=== PATIENT | male | born 1985 | race Caucasian/White ===

== ENCOUNTER 2019-12-23 02:50 | Emergency (ER) | payer OTHER ==
[~2019-12-23] VITALS: Ht 170.2 cm; Wt 98.0 kg
[2019-12-23 02:57] VITALS: BP 143/103
--- NOTE | 2019-12-23 03:02 | NUR ---
PT AMBULATED TO BED #11
--- NOTE | 2019-12-23 03:09 | NUR ---
34 Y/O MALE C/O ABSCESS TO HEAD AND RT/LT AXILLA X6DAYS. WITH C/O NAUSEA. DENIES V/D. LARGE ABSCESS AND REDNESS NOTED TO RT AXILLA. ACTIVE BS. LUNGS CLA. CAP REFILL <3 SECONDS. MEDHX- DM, HTN, PSORISAS, PANCREATITIS NKA
--- NOTE | 2019-12-23 03:19 | NUR ---
ERMD AT BEDSIDE EXAMINING PT.
[2019-12-23] MEDS ORDERED: LIDOCAINE 2% 1000 MG/50 ML VIAL INJ ONE (03:25)
[2019-12-23 03:58] VITALS: BP 143/103
--- NOTE | 2019-12-23 03:58 | NUR ---
Patient discharged with v/s stable. Written and verbal after care instructions given and explained. Patient alert, oriented and verbalized understanding of instructions. Ambulatory with steady gait. All questions addressed prior to discharge. ID band removed. Patient advised to follow up with PMD. Rx of KEFLEX, MOTRIN, BACTRIM given. Patient educated on indication of medication including possible reaction and side effects. Opportunity to ask questions provided and answered.
== END 2019-12-23 03:58 | disposition home or self-care (01) ==
LOC: MED 02:50
DX: L02.411 Cutaneous abscess of right axilla (principal); E11.9 Type 2 diabetes mellitus without complications; I10 Essential (primary) hypertension
CPT/HCPCS: 10060; 99283; J2001

== ENCOUNTER 2019-12-25 02:56 | Emergency (ER) | payer OTHER ==
[~2019-12-25] VITALS: Ht 170.2 cm; Wt 97.5 kg
[2019-12-25 03:01] VITALS: BP 159/93
[2019-12-25 03:27] VITALS: BP 159/93
== END 2019-12-25 03:27 | disposition home or self-care (01) ==
LOC: MED 02:56
DX: L02.411 Cutaneous abscess of right axilla (principal); E11.9 Type 2 diabetes mellitus without complications; I10 Essential (primary) hypertension
CPT/HCPCS: 99281

== ENCOUNTER 2020-02-28 23:47 | Emergency (ER) | payer OTHER ==
[~2020-02-28] VITALS: Ht 170.2 cm; Wt 99.8 kg
[2020-02-28 23:54] VITALS: BP 144/77
--- NOTE | 2020-02-28 23:57 | NUR ---
ambulated to bed 10 with steady gait.
[2020-02-29] MEDS ORDERED: ACETAMINOPHEN EXTRA STRENGTH 500 MG TAB PO ONE
--- NOTE | 2020-02-29 00:09 | NUR ---
34 Y/O MALE PRESENTED TO ED C/O 3 ABCESSES ( BEHIND RIGHT EAR , UNDER LEFT CHIN AND SCROTUM AREA) . OBSERVED REDNESS AND SWELLING BEHIND RIGHT EAR. PT STATES THE RT EAR AND SCROTUM POPPED TODAY. PT RATES PAIN 9/10 , THROBBING X 1 WEEK. PT RESTING IN BED, LOCKED AND IN LOWEST POSITION, HOB ELEVATED, SIDE RAIL X1. VSS, NO ACUTE DISTRESS NOTED AT THIS TIME. PMH: DM, HTN , PANCREATITIS , NKA
--- NOTE | 2020-02-29 00:10 | NUR ---
CORA WING AT BEDSIDE FOR MEDICAL EVALUATION.
[2020-02-29] MEDS ORDERED: MORPHINE SULFATE 4 MG/ML SYR IVP ONE (00:20)
[2020-02-29] MEDS ORDERED: PIPERACILLIN/TAZOBACTAM 4.5 GM in DEXTROSE 5% 100 ML IV ONE (00:20)
[2020-02-29] MEDS ORDERED: ONDANSETRON 4 MG/2 ML VIAL IVP ONE (00:20)
[2020-02-29] MEDS ORDERED: VANCOMYCIN 1,000 MG in DEXTROSE 5% 250 ML IV ONE (00:20)
[2020-02-29] MEDS ORDERED: PIPERACILLIN/TAZOBACTAM 4.5 GM VIAL IV ONE (00:22)
[2020-02-29] MEDS ORDERED: VANCOMYCIN 1,000 MG VIAL ONE (00:22)
--- NOTE | 2020-02-29 00:30 | NUR ---
LAB AT BEDSIDE.
--- NOTE | 2020-02-29 00:35 | NUR ---
IV 22 G INSERTED INTO RIGHT HAND , FLUSHED W/ 10 CC NS . IV PATENT , NO REDNESS OR SWELLING NOTED AT IV INSERTION SITE.
[2020-02-29 00:50] LABS: BASOPHILS % (AUTO) 0.3 % (0.0-2.0); EOSINOPHILS # (AUTO) 0.1 K/uL (0-0.4); EOSINOPHILS % (AUTO) 0.4 % (0.0-4.0); HEMATOCRIT 37.7 % (36-52); HEMOGLOBIN 12.9 g/dL (12.0-18.0); LYMPHOCYTES # (AUTO) 1.2 K/uL (2.0-11.5); LYMPHOCYTES % (AUTO) 8.4 % (20.5-51.1); MEAN CORPUSCULAR HEMOGLOBIN 29 pg (27-31); MEAN CORPUSCULAR HGB CONC 34 g/dL (33-37); MEAN CORPUSCULAR VOLUME 83.6 fL (80-94); MONOCYTES # (AUTO) 1.1 K/uL (0.8-1.0); MONOCYTES % (AUTO) 7.6 % (1.7-9.3); NEUTROPHILS # (AUTO) 12.2 K/uL (1.8-7.7); PLATELET COUNT (AUTO) 319 K/uL (140-450); RED BLOOD CELL COUNT(AUTO) 4.51 MIL/uL (4.20-6.10); RED CELL DISTRIBUTION WIDTH 14.6 % (11.6-13.7); WHITE BLOOD COUNT (AUTO) 14.6 K/uL (4.8-10.8)
[2020-02-29 01:05] LABS: ALBUMIN 3.6 g/dL (3.4-5.0); ANION GAP 16.5 (8-16); CREATININE 1.6 mg/dL (0.6-1.3); POTASSIUM 3.5 mmol/L (3.5-5.1); TOTAL BILIRUBIN 0.4 mg/dL (0.0-1.0)
[2020-02-29 01:15] LABS: NEUTROPHILS % (AUTO) 83.3 % (42.2-75.2)
[2020-02-29] MEDS ORDERED: NACL 0.9% 1,000 ML IV ONE (01:20)
[2020-02-29] MEDS ORDERED: HYDROmorphone PFS 2 MG/ML SYR IVP ONE (01:20)
--- NOTE | 2020-02-29 01:25 | NUR ---
PT C/O OF 02/12 PAIN , CORA WING MADE AWARE.
--- NOTE | 2020-02-29 02:42 | NUR ---
PT RESTING IN BED, LOCKED AND IN LOWEST POSITION, HOB ELEVATED, SIDE RAIL X1 . VSS , SA02 97% . NO ACUTE DISTRESS NOTED AT THIS TIME.
--- NOTE | 2020-02-29 03:55 | NUR ---
IV removed, catheter intact and site benign. Applied folded 4x4 gauze and tape to stop bleeding.
[2020-02-29 03:59] VITALS: BP 114/78
--- NOTE | 2020-02-29 03:59 | NUR ---
Patient discharged with v/s stable. Written and verbal after care instructions given and explained. Patient alert, oriented and verbalized understanding of instructions. Ambulatory with steady gait. All questions addressed prior to discharge. ID band removed. Patient advised to follow up with PMD. Rx of NORCO , KEFLEX, ZOFRAN AND BACTRIM given. Patient educated on indication of medication including possible reaction and side effects. Opportunity to ask questions provided and answered.
== END 2020-02-29 03:59 | disposition home or self-care (01) ==
LOC: MED 23:47
DX: L03.221 Cellulitis of neck (principal); L02.11 Cutaneous abscess of neck; E11.9 Type 2 diabetes mellitus without complications; I10 Essential (primary) hypertension
CPT/HCPCS: 36415; 80053; 83605; 85025; 87040; 96365; 96367; 96375; 99284; J1170; J2270; J2405; J2543; J3370

== ENCOUNTER 2020-12-04 23:52 | Emergency (ER) | payer BC, OTHER ==
[~2020-12-04] VITALS: Ht 170.2 cm; Wt 97.5 kg
[2020-12-04 23:53] VITALS: BP 142/97
--- NOTE | 2020-12-04 23:56 | NUR ---
TO LOBBY A/W BED AMBULATORY
[2020-12-05] MEDS ORDERED: VANCOMYCIN PER PHARMACY MC PRN (03:10)
[2020-12-05] MEDS ORDERED: ONDANSETRON 4 MG/2 ML VIAL IVP ONE (03:10)
[2020-12-05] MEDS ORDERED: MORPHINE SULFATE 4 MG/ML SYR IVP ONE ×2 (03:10→08:40)
[2020-12-05] MEDS ORDERED: VANCOMYCIN 1GM/DEXT 5% PREMIX 200 ML IV ONE (03:10)
[2020-12-05] MEDS ORDERED: PIPERACILLIN/TAZOBACTAM 3.375 GM in DEXTROSE 5% 50 ML IV ONE (03:10)
--- NOTE | 2020-12-05 03:11 | NUR ---
AMBULATED TO ER BED 1
--- NOTE | 2020-12-05 03:30 | NUR ---
PT. IS A 35 Y/O MALE WHO CAME INTO ED WITH C/O OF SWELLING OF HIS RIGHT NECK. PT. STATES IT STARTED TO HURT 7 DAYS AGO. HE ALSO STATES "I WANTED TO SEE IF THE PAIN WOULD GO AWAY SO I WAITED IT OUT. I HAD A FEVER ON MONDAY AND VOMITED FOR THE PAST 2 DAYS." PT. RATES HIS PAIN AT A 10/10 ON THE PAIN SCALE AT THIS TIME. UPON ASSESSMENT, PT. RIGHT NECK IS SWOLLEN AND HAS REDNESS. DENIES DIARRHEA SKIN IS PINK/WARM/DRY; AAOX4 WITH EVEN AND STEADY GAIT; HR EVEN AND REGULAR; PT DENIES ANY FEVER, CP, SOB, OR COUGH AT THIS TIME; VSS; PATIENT POSITIONED FOR COMFORT; HOB ELEVATED; BEDRAILS UP X2; BED DOWN. ER MD MADE AWARE OF PT STATUS. PMH: PANCREATITIS, DM 2, HTN ALLERGIES: NKA
[2020-12-05 03:38] LABS: BASOPHILS # (AUTO) 0.1 K/uL (0.00-0.22); BASOPHILS % (AUTO) 0.4 % (0.0-2.0); EOSINOPHILS # (AUTO) 0.2 K/uL (0-0.4); EOSINOPHILS % (AUTO) 1.1 % (0.0-4.0); HEMATOCRIT 37.4 % (36-52); HEMOGLOBIN 12.4 g/dL (12.0-18.0); LYMPHOCYTES # (AUTO) 1.6 K/uL (2.0-11.5); LYMPHOCYTES % (AUTO) 11.7 % (20.5-51.1); MEAN CORPUSCULAR HEMOGLOBIN 27 pg (27-31); MEAN CORPUSCULAR HGB CONC 33 g/dL (33-37); MEAN CORPUSCULAR VOLUME 80.9 fL (80-94); MONOCYTES # (AUTO) 1.2 K/uL (0.8-1.0); MONOCYTES % (AUTO) 8.7 % (1.7-9.3); NEUTROPHILS # (AUTO) 10.9 K/uL (1.8-7.7); NEUTROPHILS % (AUTO) 78.1 % (42.2-75.2); PLATELET COUNT (AUTO) 434 K/uL (140-450); RED BLOOD CELL COUNT(AUTO) 4.63 MIL/uL (4.20-6.10); RED CELL DISTRIBUTION WIDTH 16.3 % (11.6-13.7)
[2020-12-05] MEDS ORDERED: PIPERACILLIN/TAZOBACTAM 3.375 GM VIAL IV ONE (03:40)
[2020-12-05 04:15] LABS: ALBUMIN 4.3 g/dL (3.4-5.0); ANION GAP 15.4 (8-16); CARBON DIOXIDE 23.1 mmol/L (21-32); CREATININE 1.6 mg/dL (0.6-1.3); POTASSIUM 4.5 mmol/L (3.5-5.1); TOTAL BILIRUBIN 0.5 mg/dL (0.0-1.0)
--- NOTE | 2020-12-05 04:20 | NUR ---
DELAY IN ANTIBIOTIC FLUIDS DUE TO PT. BENDING HIS ARM.
--- NOTE | 2020-12-05 04:31 | NUR ---
PT. TAKEN TO CT VIA W/C.
[2020-12-05] MEDS ORDERED: VANCOMYCIN 1,000 MG VIAL ONE (05:29)
--- NOTE | 2020-12-05 06:00 | NUR ---
PT. SITTING IN BED, STATES "I FEEL BETTER SITTING UP SO THAT I DON'T FEEL PRESSURE ON MY NECK"
[2020-12-05] MEDS ORDERED: KETOROLAC 30 MG/ML VIAL IVP ONE (06:15)
--- NOTE | 2020-12-05 06:40 | NUR ---
PROGRESS WORKER MADISYN CALLED FOR UPDATE ON PT. PER PROGRESS WORKER, PT. WILL BE TRANSFERRED.
--- NOTE | 2020-12-05 06:45 | NUR ---
face sheet and clinicals faxed to allied health case managment at [phone]
--- NOTE | 2020-12-05 06:47 | NUR ---
fax confirmation recieved
[2020-12-05] MEDS ORDERED: METF500T2 PO (07:06)
[2020-12-05] MEDS ORDERED: LOSA25TA43 PO (07:06)
[2020-12-05] MEDS ORDERED: HYDR12.51 PO (07:06)
[2020-12-05] MEDS ORDERED: INSU100S45 SUBQ (07:06)
--- NOTE | 2020-12-05 07:15 | NUR ---
GIVEN REPORT TO LIBORIO WILLARD. TRANSFER OF CARE AT THIS TIME.
[2020-12-05] MEDS: NACL 0.9% 1,000 ML IV SCH ×2 (08:41→08:44)
[2020-12-05 08:51] VITALS: BP 137/88
--- NOTE | 2020-12-05 08:57 | NUR ---
Patient to be transferred to [facility]. Is being transferred due to higher level of care. Receiving facility has accepting physician and available space. ER physician has signed transfer form. Patient or responsible alliance party has agreed to transfer and signed form. Patient belongings inventoried and will be sent with patient. Copy of nursing notes, lab reports, EKG, Physicians Orders and X-rays to be sent with patient. Report called to [place] [facility] at receiving facility. [facility] ambulance service has been called for transfer. ETA is 40mins.
--- NOTE | 2020-12-05 11:00 | NUR ---
[facility] at bedside.
== END 2020-12-05 08:57 | disposition short-term general hospital (02) ==
LOC: MED 23:52
DX: L03.811 Cellulitis of head [any part, except face] (principal); L03.221 Cellulitis of neck; E11.65 Type 2 diabetes mellitus with hyperglycemia; I10 Essential (primary) hypertension
CPT/HCPCS: 36415; 70460; 70491; 80053; 83605; 85025; 87040; 96361; 96365; 96367; 96375; 96376; 99285; J1885; J2270; J2405; J2543; J3370; J7030; Q9967

== ENCOUNTER 2022-09-12 07:28 | Inpatient (IN) | payer BC ==
[~2022-09-12] VITALS: Ht 170.2 cm; Wt 117.9 kg
[~2022-09-12 07:28] MED LIST: HYDR12.51 PO; INSU100S45 SUBQ; LOSA25TA43 PO; METF-1139 PO
[2022-09-12 07:32] VITALS: BP 154/117
[2022-09-12] MEDS ORDERED: ONDANSETRON 4 MG/2 ML VIAL IVP ONE ×3 (08:00→13:40)
[2022-09-12] MEDS ORDERED: NACL 0.9% 2,000 ML IV ONE (08:00)
[2022-09-12] MEDS ORDERED: MORPHINE SULFATE 4 MG/ML SYR IVP ONE ×3 (08:00→13:40)
[2022-09-12 08:03] LABS: BASOPHILS # (AUTO) 0.1 K/uL (0.00-0.22); BASOPHILS % (AUTO) 1.1 % (0.0-2.0); EOSINOPHILS # (AUTO) 0.4 K/uL (0-0.4); EOSINOPHILS % (AUTO) 4.2 % (0.0-4.0); HEMATOCRIT 39.2 % (36-52); HEMOGLOBIN 14.7 g/dL (12.0-18.0); LYMPHOCYTES # (AUTO) 1.7 K/uL (2.0-11.5); MEAN CORPUSCULAR HEMOGLOBIN 31 pg (27-31); MEAN CORPUSCULAR HGB CONC 37 g/dL (33-37); MEAN CORPUSCULAR VOLUME 81.8 fL (80-94); MONOCYTES # (AUTO) 0.4 K/uL (0.8-1.0); MONOCYTES % (AUTO) 4.6 % (1.7-9.3); NEUTROPHILS # (AUTO) 6.4 K/uL (1.8-7.7); NEUTROPHILS % (AUTO) 71.1 % (42.2-75.2); PLATELET COUNT (AUTO) 405 K/uL (140-450); RED BLOOD CELL COUNT(AUTO) 4.79 MIL/uL (4.20-6.10); RED CELL DISTRIBUTION WIDTH 13.7 % (11.6-13.7)
[2022-09-12 08:26] LABS: APPEARANCE,URINE CLEAR (CLEAR); BILIRUBIN,URINE NEGATIVE (NEGATIVE); BLOOD, URINE TRACE-I (NEGATIVE); COLOR,URINE YELLOW (YELLOW); LEUKOCYTE ESTERASE ,URINE NEGATIVE (NEGATIVE); NITRITE, URINE NEGATIVE (NEGATIVE); PH,URINE 5.5 (5.0-9.0); UGLUCOSE 3+ (NEGATIVE)
--- NOTE | 2022-09-12 08:33 | NUR ---
PT AMBULATED TO ER BED 5
[2022-09-12 09:22] LABS: RBC,URINE 0-5 /HPF (0-5); WBC,URINE 0-5 /HPF (0-5)
[2022-09-12] MEDS ORDERED: MORPHINE SULFATE 4 MG/ML SYR ONE (10:22)
[2022-09-12] MEDS ORDERED: ONDANSETRON 4 MG/2 ML VIAL ONE (10:22)
[2022-09-12] MEDS ORDERED: NACL 0.9% 1,000 ML IV ONE ×2 (13:40→13:45)
[2022-09-12] MEDS ORDERED: LORazepam 2 MG/ML VIAL IVP PRN (17:20)
[2022-09-12] MEDS ORDERED: ONDANSETRON 4 MG/2 ML VIAL IVP PRN (17:20)
[2022-09-12] MEDS: NACL 0.9% 1,000 ML IV SCH ×2 (17:49→22:44)
--- NOTE | 2022-09-12 19:45 | NUR ---
36 Y/O M PRESENTS WITH SHARP ABDOMINAL PAIN /, DENIES PAIN RADIATING. PT STATES HE HAS SOME NV DENIES DIARRHEA. PT IS A&OX4, SKIN INTACT RESPIRATIONS EVEN AND UNLABORED. NKA
--- NOTE | 2022-09-12 19:50 | NUR ---
PT CONTINUES TO ASK FOR MORE MOREPHINE. PT IS REMINDED MOREPHINE IS ONLY GIVE Q4 AND WHEN IT IS TIME FOR HIS NEXT DOSE THE NURSE WILL ADMINISTER PAIN MED
[2022-09-12] MEDS: MORPHINE SULFATE 2 MG/ML SYR IVP PRN (21:12)
--- NOTE | 2022-09-12 23:30 | NUR ---
PT RESTING IN ROOM AND AWAITING ADMISSION. RESPIRATIONS EVEN AND UNLABORED. PT CONTINUES TO ASK FOR WATER, PT REMINDED HE IS NPO
[2022-09-13] MEDS: MORPHINE SULFATE 2 MG/ML SYR IVP PRN ×3 (02:06→11:46)
--- NOTE | 2022-09-13 02:07 | NUR ---
C/O 10/10 ABDOMINAL PAIN WITH NAUSEA. PT MEDICATED WITH PRN ZOFRAN AND MORPHINE
[2022-09-13] MEDS: NACL 0.9% 1,000 ML IV SCH ×3 (03:16→13:21)
--- NOTE | 2022-09-13 03:40 | NUR ---
Patient will be admitted to care of CHAU DURAND. Admited to TELE. Will go to [id number]. Belongings list completed. Report to [facility] CAPONE.
--- NOTE | 2022-09-13 03:50 | NUR ---
PATIENT IS A 36 YR OLD, MALE, ADMITTED FROM ED, PATIENT IS AWAKE, ALERT AND ORIENTED X4, CAME VIA GURNEY, AMBULATORY, GAIT IS STEADY. PATIENT IN NO ACUTE DISTRESS, NO C/O PAIN AT THIS TIME. MRSA DONE. PATIENT ORIENTED TO ROOM SETTING. CALL LIGHT IS WITHIN REACH.
[2022-09-13 04:00] VITALS: BP 157/80
[2022-09-13 06:01] LABS: BASOPHILS % (AUTO) 0.2 % (0.0-2.0); EOSINOPHILS % (AUTO) 0.2 % (0.0-4.0); HEMATOCRIT 37.8 % (36-52); LYMPHOCYTES % (AUTO) 8.8 % (20.5-51.1); MEAN CORPUSCULAR HEMOGLOBIN 29 pg (27-31); MEAN CORPUSCULAR HGB CONC 34 g/dL (33-37); MEAN CORPUSCULAR VOLUME 84.6 fL (80-94); MONOCYTES # (AUTO) 0.8 K/uL (0.8-1.0); NEUTROPHILS % (AUTO) 83.8 % (42.2-75.2); PLATELET COUNT (AUTO) 372 K/uL (140-450); RED BLOOD CELL COUNT(AUTO) 4.47 MIL/uL (4.20-6.10); RED CELL DISTRIBUTION WIDTH 13.8 % (11.6-13.7); WHITE BLOOD COUNT (AUTO) 11.9 K/uL (4.8-10.8)
[2022-09-13 06:26] LABS: ALBUMIN 2.9 g/dL (3.4-5.0); ANION GAP 25.6 (8-16); CARBON DIOXIDE 12.6 mmol/L (21-32); POTASSIUM 4.2 mmol/L (3.5-5.1); TOTAL BILIRUBIN 0.5 mg/dL (0.0-1.0)
--- NOTE | 2022-09-13 07:33 | NUR ---
ENDORSED TO DAY NURSE FOR CONTINUITY OF CARE. PATIENT IS IN STABLE CONDITION.
[2022-09-13 07:38] VITALS: BP 153/89
--- NOTE | 2022-09-13 09:32 | NUR ---
PATIENT HAS BEEN SCREENED AND CATEGORIZED MODERATE NUTRITION RISK. PATIENT WILL BE SEEN WITHIN 3-5 DAYS OF ADMISSION. REVIEWED BY ARVIN GRULLON RD
[2022-09-13 11:50] VITALS: BP 153/90
--- NOTE | 2022-09-13 15:20 | NUR ---
PATIENT DISCHARGE TO HOME WITH A COPY OF DISCHARGE INSTRUCTIONS AND ALL BELONGINGS . INTACT [employer] TIP REMOVAL FROM RIGHT FOREARM. PATIENT IDENTIFICATION BRACELET REMOVAL. PATIENT TRANSPORT TO HOME VIA [employer]IVATE [employer].
== END 2022-09-13 15:45 | disposition home or self-care (01) | DRG 439 ==
LOC: MED 07:28 → MTU 17:21
PROVIDERS: ADMIT Hospitalist; ATTEND Hospitalist
DX: K85.90 Acute pancreatitis without necrosis or infection, unspecified (principal); Z68.41 Body mass index [BMI] 40.0-44.9, adult; I10 Essential (primary) hypertension; Z20.822 Contact with and (suspected) exposure to COVID-19; E11.9 Type 2 diabetes mellitus without complications; L40.9 Psoriasis, unspecified; E66.01 Morbid (severe) obesity due to excess calories
CPT/HCPCS: 36415; 80053; 81001; 82009; 82150; 82948; 83690; 83735; 85025; 87081; 96361; 96374; 96375; 99285; J2270; J2405